=== PATIENT | male | born 1950 | race Caucasian/White ===

== ENCOUNTER 2016-11-20 16:42 | Inpatient (IN) | payer MEDICARE, BC ==
[~2016-11-20 16:42] MED LIST: CRESTOR20 M1 PO
[2016-11-20 17:30] LABS: HCT-HEMATOCRIT 20.1 % (36.0-53.5); IMMATURE GRANULOCYTES ABSOLUTE 0.01 tho/cmm (0-0.03); IMMATURE GRANULOCYTES PERCENT 0.5 % (0-0.3); LYMPH % 31.2 % (20-45); LYMPH ABSOLUTE COUNT 0.7 tho/cmm (0.8-4.5); MCH (MEAN CORPUSCULAR HGB) 23.9 pg (28.0-32.0); MCHC MEAN CORPUSCULAR HGB CONC 29.9 % (32.0-36.0); MCV (MEAN CELL VOLUME) 80.1 fl (82.0-96.0); MEAN PLATELET VOLUME 9.1 cmc (9.4-12.4); MONO % 11.6 % (0-12); MONOCYTE ABSOLUTE COUNT 0.3 tho/cmm (0.0-1.2); NEUTROPHIL ABSOLUTE COUNT 1.2 tho/cmm (1.6-8.0); NEUTROPHIL-AUTOMATED 1.2 tho/cmm (1.6-8.0); NEUTROPHILS % 56.7 % (40-80); PLATELET COUNT 140 tho/cmm (150-450); RED BLOOD COUNT 2.51 mil/cmm (4.40-5.70); RED CELL DISTRIBUTION WIDTH 19.4 % (12.4-16.4); WHITE BLOOD COUNT 2.2 tho/cmm (4.0-10.0)
[2016-11-20 17:47] LABS: ALB/GLOB RATIO 0.5 (0.8-2.0); ALBUMIN 1.5 g/dl (3.5-5.0); ALKALINE PHOSPHATASE 101 U/L (33-138); ALT/SGPT 31 U/L (12-78); ANION GAP 14 mmol/L (0-20); AST/SGOT 41 U/L (10-40); BILIRUBIN,TOTAL 0.4 mg/dl (0.0-1.5); BLOOD UREA NITROGEN 11 mg/dl (6-24); CARBON DIOXIDE-VENOUS 19 mmol/L (22-32); CHLORIDE 108 mmol/l (96-110); CREATININE 0.76 mg/dl (0.60-1.30); GLUCOSE 104 mg/dL (70-110); SODIUM 138 mmol/L (135-145); eGFR VALUE FOR BLACK >90 mL/Min
[2016-11-20 18:01] LABS: PROCALCITONIN 0.17 ng/ml (0.05-0.09)
[2016-11-20 19:19] LABS: URINE APPEARANCE CLEAR; URINE BILIRUBIN NEGATIVE (NEG); URINE BLOOD NEGATIVE (NEG); URINE COLOR YELLOW; URINE GLUCOSE (UA) NEGATIVE (NEG); URINE KETONE NEGATIVE (NEG); URINE LEUKOCYTE ESTERASE NEGATIVE (NEG); URINE NITRITE NEGATIVE (NEG); URINE PROTEIN MODERATE (NEG)
[2016-11-20 19:38] LABS: URINE EPITHELIAL CELLS 0-1 /[HPF] (0-10); URINE OTHER RARE SPERM; URINE RBC 0-1 /[HPF] (0-5); URINE WBC 0-2 /[HPF] (0-5)
[2016-11-21 00:10] LABS: INR 1.6 INR (0.9-1.1)
[2016-11-21 02:36] LABS: C-REACTIVE PROTEIN 9.8 mg/dl (0-0.9)
[2016-11-21 04:21] LABS: IMMATURE GRANULOCYTES ABSOLUTE 0.02 tho/cmm (0-0.03); IMMATURE GRANULOCYTES PERCENT 0.7 % (0-0.3); MCV (MEAN CELL VOLUME) 80.9 fl (82.0-96.0); MEAN PLATELET VOLUME 9.5 cmc (9.4-12.4); MONO % 9.5 % (0-12); MONOCYTE ABSOLUTE COUNT 0.3 tho/cmm (0.0-1.2); NEUTROPHIL ABSOLUTE COUNT 1.6 tho/cmm (1.6-8.0); NEUTROPHIL-AUTOMATED 1.6 tho/cmm (1.6-8.0); NEUTROPHILS % 55.8 % (40-80); PLATELET COUNT 176 tho/cmm (150-450); RED CELL DISTRIBUTION WIDTH 18.9 % (12.4-16.4); WHITE BLOOD COUNT 2.9 tho/cmm (4.0-10.0)
[2016-11-21 04:28] LABS: ALB/GLOB RATIO 0.5 (0.8-2.0); ALBUMIN 1.8 g/dl (3.5-5.0); ALKALINE PHOSPHATASE 128 U/L (33-138); ALT/SGPT 37 U/L (12-78); ANION GAP 13 mmol/L (0-20); AST/SGOT 52 U/L (10-40); BLOOD UREA NITROGEN 11 mg/dl (6-24); CALCIUM 7.4 mg/dl (8.5-10.5); CARBON DIOXIDE-VENOUS 23 mmol/L (22-32); CHLORIDE 104 mmol/l (96-110); CREATININE 0.85 mg/dl (0.60-1.30); FERRITIN 845 ng/ml (22-388); GLUCOSE 108 mg/dL (70-110); MAGNESIUM 1.8 mg/dl (1.3-2.6); PHOSPHOROUS 2.4 mg/dl (2.5-4.9); POTASSIUM 3.7 mmol/L (3.7-5.1); SODIUM 136 mmol/L (135-145); eGFR VALUE FOR BLACK >90 mL/Min
[2016-11-21 04:29] LABS: IRON 16 ug/dl (49-181); IRON BINDING CAPACITY 183 ug/dl (250-450)
[2016-11-21 04:45] LABS: PROCALCITONIN 0.19 ng/ml (0.05-0.09)
[2016-11-21 04:49] LABS: BILIRUBIN,TOTAL 0.8 mg/dl (0.0-1.5)
[2016-11-21 04:50] LABS: TSH-THYROID STIMULATING HORM. 0.61 uIU/ml (0.40-3.80)
[2016-11-21 05:08] LABS: HGB-HEMOGLOBIN 9.5 gm/dl (13.5-17.0); MCH (MEAN CORPUSCULAR HGB) 24.8 pg (28.0-32.0); MCHC MEAN CORPUSCULAR HGB CONC 30.6 % (32.0-36.0); RED BLOOD COUNT 3.83 mil/cmm (4.40-5.70)
[2016-11-22 06:27] LABS: ANION GAP 13 mmol/L (0-20); CARBON DIOXIDE-VENOUS 22 mmol/L (22-32); CHLORIDE 105 mmol/l (96-110); POTASSIUM 3.4 mmol/L (3.7-5.1); SODIUM 137 mmol/L (135-145)
[2016-11-22 06:32] LABS: BLOOD UREA NITROGEN 9 mg/dl (6-24); C-REACTIVE PROTEIN 10.9 mg/dl (0-0.9); CALCIUM 7.5 mg/dl (8.5-10.5); GLUCOSE 100 mg/dL (70-110); eGFR VALUE FOR BLACK >90 mL/Min
[2016-11-22 06:49] LABS: HCT-HEMATOCRIT 27.4 % (36.0-53.5); HGB-HEMOGLOBIN 8.6 gm/dl (13.5-17.0); LYMPH % 37.7 % (20-45); LYMPH ABSOLUTE COUNT 0.8 tho/cmm (0.8-4.5); MCH (MEAN CORPUSCULAR HGB) 25.1 pg (28.0-32.0); MCHC MEAN CORPUSCULAR HGB CONC 31.4 % (32.0-36.0); MCV (MEAN CELL VOLUME) 80.1 fl (82.0-96.0); MEAN PLATELET VOLUME 9.5 cmc (9.4-12.4); MONO % 12.3 % (0-12); MONOCYTE ABSOLUTE COUNT 0.3 tho/cmm (0.0-1.2); NEUTROPHIL ABSOLUTE COUNT 1.1 tho/cmm (1.6-8.0); NEUTROPHIL-AUTOMATED 1.1 tho/cmm (1.6-8.0); PLATELET COUNT 183 tho/cmm (150-450); RED BLOOD COUNT 3.42 mil/cmm (4.40-5.70); WHITE BLOOD COUNT 2.2 tho/cmm (4.0-10.0)
[2016-11-23 06:04] LABS: HGB-HEMOGLOBIN 8.8 gm/dl (13.5-17.0); LYMPH % 51.5 % (20-45); LYMPH ABSOLUTE COUNT 0.9 tho/cmm (0.8-4.5); MCH (MEAN CORPUSCULAR HGB) 25.1 pg (28.0-32.0); MCHC MEAN CORPUSCULAR HGB CONC 31.4 % (32.0-36.0); MEAN PLATELET VOLUME 9.5 cmc (9.4-12.4); MONO % 12.9 % (0-12); MONOCYTE ABSOLUTE COUNT 0.2 tho/cmm (0.0-1.2); NEUTROPHIL ABSOLUTE COUNT 0.6 tho/cmm (1.6-8.0); NEUTROPHIL-AUTOMATED 0.6 tho/cmm (1.6-8.0); NEUTROPHILS % 35.6 % (40-80); PLATELET COUNT 196 tho/cmm (150-450); RED CELL DISTRIBUTION WIDTH 19.1 % (12.4-16.4)
[2016-11-23 06:18] LABS: ANION GAP 14 mmol/L (0-20); BLOOD UREA NITROGEN 9 mg/dl (6-24); CALCIUM 7.4 mg/dl (8.5-10.5); CARBON DIOXIDE-VENOUS 22 mmol/L (22-32); CHLORIDE 102 mmol/l (96-110); CREATININE 0.83 mg/dl (0.60-1.30); GLUCOSE 100 mg/dL (70-110); POTASSIUM 3.3 mmol/L (3.7-5.1); SODIUM 135 mmol/L (135-145); eGFR VALUE FOR BLACK >90 mL/Min
[2016-11-23 06:27] LABS: WHITE BLOOD COUNT 1.7 tho/cmm (4.0-10.0)
[2016-11-24 06:24] LABS: HGB-HEMOGLOBIN 8.4 gm/dl (13.5-17.0); IMMATURE GRANULOCYTES ABSOLUTE 0.05 tho/cmm (0-0.03); IMMATURE GRANULOCYTES PERCENT 1.5 % (0-0.3); LYMPH % 18.5 % (20-45); LYMPH ABSOLUTE COUNT 0.6 tho/cmm (0.8-4.5); MCH (MEAN CORPUSCULAR HGB) 24.9 pg (28.0-32.0); MCHC MEAN CORPUSCULAR HGB CONC 31.1 % (32.0-36.0); MCV (MEAN CELL VOLUME) 79.9 fl (82.0-96.0); MEAN PLATELET VOLUME 8.8 cmc (9.4-12.4); MONOCYTE ABSOLUTE COUNT 0.5 tho/cmm (0.0-1.2); NEUTROPHIL ABSOLUTE COUNT 2.2 tho/cmm (1.6-8.0); NEUTROPHIL-AUTOMATED 2.2 tho/cmm (1.6-8.0); PLATELET COUNT 184 tho/cmm (150-450); RED BLOOD COUNT 3.38 mil/cmm (4.40-5.70); RED CELL DISTRIBUTION WIDTH 19.3 % (12.4-16.4)
[2016-11-24 06:29] LABS: WHITE BLOOD COUNT 3.3 tho/cmm (4.0-10.0)
[2016-11-24] MEDS ORDERED: PRINIVIL5 M1 PO (09:52)
[2016-11-24] MEDS ORDERED: LEVAQUIN750 M1 PO (09:53)
[2016-11-24] MEDS ORDERED: METOPROLOL TART25 M1 PO (09:53)
[2016-11-24] MEDS ORDERED: ASPIRIN81 M1 PO (09:58)
== END 2016-11-24 11:00 | DRG 871 ==
LOC: EDMED 16:42 → EMR2 21:44 → PCUA 22:05 → 5WF 11-21 18:22
PROVIDERS: Emergency Medicine; Family Medicine; Physician Assistant Medical; Registered Nurse; ADMIT Hospitalist
DX: A41.9 Sepsis, unspecified organism (principal); E43 Unspecified severe protein-calorie malnutrition; D61.818 Other pancytopenia; J18.9 Pneumonia, unspecified organism; C78.00 Secondary malignant neoplasm of unspecified lung; C15.9 Malignant neoplasm of esophagus, unspecified; C78.7 Secondary malignant neoplasm of liver and intrahepatic bile duct; E83.51 Hypocalcemia; I24.8 Other forms of acute ischemic heart disease; I10 Essential (primary) hypertension
CPT/HCPCS: A9560; J0610; J0692; J1447; J3370; J3480; J7030; J7050; P9016; Q9967